=== PATIENT | male | born 1995 ===

== ENCOUNTER → 2022-11-08 | Outpatient (CLI) | payer OTHER | LOC: EDSTATUS 13:40 → HS RAD 18:12 → RAD 18:15 | PROVIDERS: ATTEND Family Medicine | DX: M25.562 Pain in left knee (principal); M25.462 Effusion, left knee; Z98.890 Other specified postprocedural states ==

== ENCOUNTER 2023-02-28 06:10 | Observation (INO) | payer OTHER ==
[2023-02-27 15:03] VITALS: BMI 30.8
[2023-02-28] MEDS ORDERED: Vancomycin (BATCH) 1.5 GM/300 ML BAG ONE (06:25)
[2023-02-28] MEDS ORDERED: EPINEPHrine 1 MG/ML VIAL ONE (06:46)
[2023-02-28] MEDS ORDERED: Midazolam HCl 2 mg/2 ml Vial ONE (06:47)
[2023-02-28] MEDS ORDERED: Lidocaine 1% (PF) 30 ML VIAL ONE (06:47)
[2023-02-28] MEDS ORDERED: Bupivacaine PF 0.5% 30 ML VIAL ONE (06:47)
[2023-02-28] MEDS ORDERED: fentaNYL 50 mcg/mL 1 mL Vial ONE ×3 (06:47→12:19)
[2023-02-28] MEDS ORDERED: CEFAZOLIN 2 GM VIAL ONE ×2 (06:54→13:36)
[2023-02-28] MEDS ORDERED: Sodium Chloride 0.9% 100 ML ONE ×2 (06:55→13:36)
[2023-02-28] MEDS ORDERED: PROPOFOL 20 ML ONE ×2 (07:20→07:27)
[2023-02-28] MEDS ORDERED: Lidocaine 1% PF 5 ML VIAL ONE ×2 (07:20→07:26)
[2023-02-28] MEDS ORDERED: Ondansetron PF 4 MG/2 ML Vial ONE ×2 (07:26→08:55)
[2023-02-28] MEDS ORDERED: PROPOFOL 200 MG/20 ML VIAL ONE (07:26)
[2023-02-28] MEDS ORDERED: Dexamethasone 20 MG/5 ML VIAL ONE ×2 (07:26→07:39)
[2023-02-28] MEDS ORDERED: Ketorolac Tromethamine 30 MG/ML VIAL ONE ×3 (07:26→12:19)
[2023-02-28] MEDS ORDERED: Milk Of Magnesia 30 ML UDCUP PO PRN (07:39)
[2023-02-28] MEDS ORDERED: Methocarbamol 500 MG TAB PO PRN (07:39)
[2023-02-28] MEDS ORDERED: traMADol HCl 50 MG TAB PO PRN ×3 (07:39→07:45)
[2023-02-28] MEDS ORDERED: Bisacodyl 10 MG SUPP PR PRN (07:39)
[2023-02-28] MEDS ORDERED: Ondansetron PF 4 MG/2 ML Vial IVP PRN ×2 (07:39→07:45)
[2023-02-28] MEDS ORDERED: diphenhydrAMINE 50 MG CAP PO PRN (07:39)
[2023-02-28] MEDS ORDERED: Acetaminophen 500 MG TAB PO PRN (07:39)
[2023-02-28] MEDS ORDERED: HYDROcodone/Acetaminophen 7.5/325 mg Tablet PO PRN ×2 (07:39)
[2023-02-28] MEDS ORDERED: fentaNYL 50 mcg/mL 1 mL Vial SLOW IVP PRN (07:43)
[2023-02-28] MEDS ORDERED: Promethazine HCl 25 MG/ML VIAL IM PRN ×2 (07:45→09:04)
[2023-02-28] MEDS ORDERED: Zolpidem Tartrate 5 MG TAB PO PRN (07:45)
[2023-02-28] MEDS ORDERED: Ropivacaine 0.2% 550 ML 550 ML NERVE BLCK SCH (07:45)
[2023-02-28] MEDS ORDERED: HYDROcodone/Acetaminophen 10/325 mg Tablet PO PRN ×2 (07:45)
[2023-02-28] MEDS ORDERED: Ondansetron HCl/PF 4 MG/2 ML Vial IVP PRN (09:04)
[2023-02-28] MEDS: Ketorolac Tromethamine 30 MG/ML VIAL IVP SCH ×3 (12:00→23:00)
[2023-02-28] MEDS ORDERED: Ketorolac Tromethamine 30 MG/ML VIAL IVP SCH (12:00)
[2023-02-28] MEDS: CEFAZOLIN 2 GM in Sodium Chloride 0.9% 100 ML IVPB SCH ×2 (13:54→22:54)
[2023-02-28] MEDS: Famotidine 20 MG TAB PO SCH ×2 (13:54→19:52)
[2023-02-28] MEDS: Dextrose 5 %-0.45 % NaCl 1,000 ML IV SCH ×2 (14:44→18:07)
[2023-03-01] MEDS: Dextrose 5 %-0.45 % NaCl 1,000 ML IV SCH (01:37)
[2023-03-01] MEDS: Ketorolac Tromethamine 30 MG/ML VIAL IVP SCH (05:43)
[2023-03-01 08:22] VITALS: BP 101/67; TEMP 98.1
[2023-03-01] MEDS: Famotidine 20 MG TAB PO SCH (11:02)
[2023-03-03] MEDS ORDERED: FLU VACC QS2023-24(6MOS UP)/PF 60 MCG/0.5 ML SYRINGE IM ONE (09:00)
== END 2023-03-01 11:11 | disposition home or self-care (01) ==
LOC: SDC 06:10 → SURG A 07:42
PROVIDERS: ADMIT Orthopaedic Surgery; ATTEND Orthopaedic Surgery
PROC: 0MRP47Z Replacement of Left Knee Bursa and Ligament with Autologous Tissue Substitute, Percutaneous Endoscopic Approach (ICD-10-PCS; principal; 2023-03-01)
DX: T84.89XA Other specified complication of internal orthopedic prosthetic devices, implants and grafts, initial encounter (principal); S83.242A Other tear of medial meniscus, current injury, left knee, initial encounter; X58.XXXA Exposure to other specified factors, initial encounter; Z79.899 Other long term (current) drug therapy; F17.210 Nicotine dependence, cigarettes, uncomplicated
CPT/HCPCS: A4306; C1713; C1889; J0171; J1100; J1885; J2001; J2250; J2405; J2704; J2795; J3010; J3370; J3490; S0020